=== PATIENT | female | born 1990 | race Caucasian/White ===

== ENCOUNTER 2021-02-15 12:59 | Emergency (ER) | payer MEDICAID ==
[~2021-02-15] VITALS: Ht 160 cm; Wt 86.2 kg
[2021-02-15] MEDS ORDERED: SERTRALINE HCL100 MG PO (13:04)
[2021-02-15 13:23] VITALS: BP 110/76
== END 2021-02-15 13:24 | disposition home or self-care (01) ==
LOC: M.ERS 12:59
DX: R55 Syncope and collapse (principal); R10.9 Unspecified abdominal pain; R61 Generalized hyperhidrosis; R07.0 Pain in throat; K21.9 Gastro-esophageal reflux disease without esophagitis; Z79.899 Other long term (current) drug therapy; Z88.5 Allergy status to narcotic agent; Z88.8 Allergy status to other drugs, medicaments and biological substances